=== PATIENT | female | born 1985 | race Caucasian/White ===

== ENCOUNTER 2017-10-08 12:37 | Emergency (ER) | payer OTHER ==
[2017-10-08] MEDS ORDERED: Adacel (T-DAP) 0.5 ML VIAL ONE (12:57)
[2017-10-08] MEDS ORDERED: Cephalexin 500 MG CAP ONE (14:11)
[2017-10-08] MEDS ORDERED: Triple Antibiotic Oint 1 GM Packet ONE (14:11)
== END 2017-10-08 14:30 | disposition home or self-care (01) ==
LOC: MADERS 12:37
DX: S91.332A Puncture wound without foreign body, left foot, initial encounter (principal); Z23 Encounter for immunization; W45.0XXA Nail entering through skin, initial encounter
CPT/HCPCS: 90471; 90715